=== PATIENT | female | born 2000 | race American Indian/Alaskan Native ===

== ENCOUNTER 2022-03-23 09:46 | Inpatient (IN) | payer MEDICAID ==
[2022-03-23] MEDS ORDERED: LACTATED RINGERS 1,000 ML IV SCH (11:30)
--- NOTE | 2022-03-23 11:36 | History and Physical Report ---
History of Present Illness Date of examination: 03/23/22 Chief complaint: my water broke History of present illness: Pt is a 21 year old female JUAN 04/07[birth year] at 37w6d who presents with co mplaint of rupture of membranes with a positive ROM plus test in triage. She denies regular contractions or vaginal bleeding. She has had limited care at [facility] since 17 wks complicated by late entry to care at 17 wks, morbid obesity, lapse in care between 20 and 31 wks, prior section, and GBS positive status. Pt reports needing a blood transfusion after her first delivery. Past History Past Medical History: other (Obesity) Past Surgical History: section Family/Genetic History: none Social history: no significant social history - Obstetrical History Expected Date of Delivery: 04/07/22 Actual Gestation: 37 Week(s) 6 Day(s) : 2 Para: 1 Hx # Term Pregnancies: 1 Number of Pregnancies: 0 Spontaneous Abortions: 0 Induced : 0 Number of Living Children: 1 Medications and Allergies Allergies Allergy/AdvReac Type Severity Reaction Status Date / Time No Known Allergies Allergy Unverified 09/11/15 08:56 Home Medications Medication Instructions Recorded Confirmed Last Taken Type Loratadine (Nf) [Claritin] 10 mg PO DAILY #30 tablet 09/11/15 Unknown Rx Prednisone [predniSONE 5 mg (6-Day 5 mg PO .TAPER #1 tab.ds.pk 09/11/15 Unknown Rx Pack, 21 Tabs)] RX: Amoxicillin [Trimox CAP] 500 mg PO Q8H #30 capsule 09/11/15 Unknown Rx Active Meds: Active Medications Citric Acid/Sodium Citrate (Bicitra Oral Liqd 30ml) 30 ml PO ONCE ONE Stop: 03/23/22 11:29 Famotidine (Famotidine 20 Mg/2 Ml Inj) 20 mg IV ONCE ONE Stop: 03/23/22 11:29 Metoclopramide HCl (Metoclopramide 10 Mg/2 Ml Inj) 10 mg IV ONCE ONE Stop: 03/23/22 11:29 Review of Systems All systems: negative - Vital Signs Vital signs: Vital Signs Pulse Pulse Ox 89 98 03/23/22 10:14 03/23/22 10:14 Temp Pulse Resp BP Pulse Ox 99.0 F 91 H 18 125/71 100 03/23/22 10:15 03/23/22 11:27 03/23/22 10:15 03/23/22 10:16 03/23/22 11:27 - Physical Exam Breasts: Positive: deferred Abdomen: Positive: soft (gravid, obese ) Uterus: Positive: enlarged (gravid) Extremities: Positive: edema (trace) - Obstetrical FHR: auscultation normal Uterine Contraction Monitor Mode: External Uterine Contraction Pattern: Irregular Uterine Tone Measurement Phase: Resting Results Result Diagrams: 03/23/22 11:28 Abnormal lab results 03/23/22 Range/Units Unknown Membranes Rupture Positive A (Negative) All other labs normal. Assessment and Plan A: IUP at 37w6d SROM Previous x 1 Morbid Obesity Insufficient Care Personal history of hemorrhage GBS Positive P: Proceed with repeat section and other indicated procedures
[2022-03-23] MEDS ORDERED: OXYTOCIN DRIP 30 UNITS/500 ML BAG IV SCH ×2 (12:00→17:00)
[2022-03-23] MEDS ORDERED: ceFAZolin/Water 2 GM/20 ML 2 GM/20 ML SYRINGE IV NR (12:00)
[2022-03-23] MEDS ORDERED: METOCLOPRAMIDE 10 MG/2 ML INJ IV ONE (12:30)
[2022-03-23] MEDS ORDERED: FAMOTIDINE 20 MG/2 ML INJ IV ONE (12:30)
[2022-03-23] MEDS ORDERED: BICITRA ORAL LIQD 30ML PO ONE (12:30)
--- NOTE | 2022-03-23 12:38 | Anesthesia Day of Surgery ---
Anesthesia Day of Surgery - Day of Surgery Patient Examined: Yes Patient H&P Reviewed: Yes Patient is NPO: Yes
--- NOTE | 2022-03-23 12:40 | Anesthesia Consultation ---
Anesthesia Consult and Med Hx Date of service: 03/23/22 - Airway Anesthetic Teeth Evaluation: Good ROM Head & Neck: Adequate Mental/Hyoid Distance: Adequate Mallampati Class: Class III Intubation Access Assessment: Probably Good - Pulmonary Exam CTA: Yes - Cardiac Exam Cardiac Exam: RRR - Pre-Operative Health Status ASA Pre-Surgery Classification: ASA3 Proposed Anesthetic Plan: Spinal - Pulmonary Hx Smoking: No Hx Asthma: No Hx Respiratory Symptoms: No - Cardiovascular System Hx Hypertension: No - Central Nervous System Hx Neuromuscular Disorder: No Hx Seizures: No Hx Psychiatric Problems: No - Endocrine Hx Renal Disease: No Hx Insulin Dependent Diabetes: No Hx Non-Insulin Dependent Diabetes: No Hx Hypothyroidism: No Hx Hyperthyroidism: No - Hematic Hx Anemia: No Hx Sickle Cell Disease: No - Other Systems Hx Alcohol Use: No Hx Substance Use: No Hx Obesity: Yes
[2022-03-23] MEDS ORDERED: ONDANSETRON 4 MG/2 ML INJ ONE (12:51)
[2022-03-23] MEDS ORDERED: TRANEXAMIC ACID 1,000 MG/10 ML ONE (12:51)
[2022-03-23] MEDS ORDERED: SODIUM CHLORIDE 0.9% 100 ML ONE (12:52)
[2022-03-23 13:14] LABS: Hematocrit 34.8 % (30.3-42.9); Hemoglobin 10.8 gm/dl (10.1-14.3); Mean Corpuscular HGB Conc 31 % (30-34); Mean Corpuscular Volume 75 fl (79-97); Platelet Count 242 K/mm3 (140-440); Red Blood Count 4.67 M/mm3 (3.65-5.03); Red Cell Distribution Width 16.7 % (13.2-15.2)
[2022-03-23] MEDS ORDERED: LACTATED RINGERS 1,000 ML ONE (14:03)
[2022-03-23] MEDS ORDERED: ceFAZolin/STERILE WATER 2 GM/20 ML SYRINGE IV ONE (14:06)
[2022-03-23] MEDS ORDERED: WATER FOR IRRIG STERILE 1,500 ML BOTTLE IR ONE (14:35)
[2022-03-23] MEDS ORDERED: SODIUM CHLORIDE 0.9% IRR 1,500 ML BOTTLE IR ONE (14:35)
[2022-03-23] MEDS ORDERED: METHYLERGONOVINE MALEATE 0.2 MG/ML VIAL IM ONE (14:56)
[2022-03-23] MEDS ORDERED: miSOPROStol 200 MCG TAB ONE (14:56)
[2022-03-23 15:18] LABS: Anisocytosis Few; Hypochromasia Few; Platelet Estimate Consistent w Auto; Total Cells Counted 100
--- NOTE | 2022-03-23 16:00 | Procedure Note ---
OB Delivery Note - Delivery Date of Delivery: 03/23/22 Surgeon: KIRA SEN Estimated blood loss: other (930 mL) - Section Preop diagnosis: repeat , other ([id number]) section procedure: section, repeat low transverse Disposition: PACU Narrative: Please see operative report - Infant A at 1 minute: 8 at 5 minutes: 9 Infant Gender: Female (2950g (6lb 8oz) @ 1503 pm)
[2022-03-23] MEDS ORDERED: KETOROLAC 30 MG/1 ML INJ ONE (16:02)
[2022-03-23] MEDS ORDERED: dexAMETHasone 20 MG/5 ML VIAL ONE (16:02)
[2022-03-23] MEDS ORDERED: BUPIVACAINE/PF (0.25%) 2.5 MG/ML 30 ML VIAL INFILTRATI ONE (16:02)
--- NOTE | 2022-03-23 16:09 | Operative Report ---
Operative Report Operative Report: Date of procedure: March 23, 2022 Preoperative diagnosis: 1) IUP at 37w6d 2) SROM 3) Previous x 1 4) Mo rbid Obesity Postoperative diagnosis: Same Procedure: Repeat low transverse section, lysis of adhesions Surgeon: Loren Gardner M.D. Anesthesia: Regional Findings: 1) Viable female , Apgars 8 and 9, weight 2950g, (6 lb 8 oz) in cephalic presentation. True knot in cord 2) Normal-appearing uterus ovaries and left fallopian tube. Right fallopian tube noted to adherent to uterus 3) Large adhesion on the anterior surface of the uterus Estimated blood loss: 930 mL IV fluids:2500 mL Urine output: 300 mL, clear at the end of the procedure Drains: Verma to gravity Specimens: None Medications: Misoprostol 400 mcg sublingual, Transexamic acid 1g IV Complications:None. Counts correct x 3 Disposition: Stable to PACU Indication for procedure: Pt is a 21 year old at 37w6d with a h/o one prior section presents with rupture of membranes. The decision was made to proceed with section. Operation in detail: After the risks, benefits, alternatives and complications were explained to the patient she gave informed consent for the procedure. She was subsequently taken to the operating room where regional anesthesia was noted to be adequate. She was placed in the dorsal supine position with leftward tilt and prepped and draped in a normal sterile fashion. heart tones were noted prior to incision. A timeout was performed. A Pfannenstiel skin incision was made with the knife and carried down to the layer of the fascia with the Bovie. The fascia was incised in the midline and the fascial incision was extended bilaterally with the Bovie. The fascial incision was then stretched. The rectus muscles were then in the midline for adequate visualization. The peritoneum was then entered sharply. The peritoneal incision was extended with good visualization of the bladder. A large adhesion was noted at the anterior surface of the uterus, and was lysed with the Bovie. The peritoneal incision was then stretched. An Chilo retractor was placed. The bladder blade was then placed. The vesicouterine peritoneum was grasped with smooth pick ups and incised with Metzenbaum scissors. A bladder flap was then created digitally and the bladder blade was replaced. A transverse incision was made in the lower uterine segment with a knife and extended bilaterally with the bandage scissors. Amniotomy was performed with egress of clear fluid. head delivered with ease, followed by shoulders and body. bulb suctioned at delivery. Cord clamped and cut. handed to NICU staff in attendance. Cord blood was collected. The placenta was then delivered manually. The uterus was then exteriorized and cleared of all clots and debris. The hysterotomy was then reapproximated with 0 Monocryl in a running locked fashion. A second layer of the same suture was used in imbricating fashion. The hysterotomy was inspected and hemostasis was noted. The gutters were irrigated and cleared of all clots and debris. The uterus was placed back into the peritoneal cavity. The hysterotomy was again inspected and noted to be hemostatic. Surgicel was placed over the hysterotomy. The Chilo retractor was removed. The peritoneum was reapproximated with 0 Monocryl in a running fashion incorporating the rectus muscles. Surgicel was placed over the rectus muscles. The fascia was reapproximated with 0 Vicryl in a running fashion. The subcutaneous tissue was reapproximated with 3-0 Vicryl in a running fashion. The skin was reapproximated with 3-0 Monocryl in a subcuticular fashion. The incision was then covered with steri strips and a pressure dressing. The procedure was then ended. The patient tolerated the procedure well and was taken to the PACU in stable condition. All instrument, lap, and needle counts were correct 3.
[2022-03-23] MEDS ORDERED: ONDANSETRON 4 MG/2 ML INJ IV PRN (16:10)
[2022-03-23] MEDS ORDERED: LANOLIN/ZINC/DIMETHICONE (LANSINOH) 7 GM TP PRN (16:10)
[2022-03-23] MEDS ORDERED: HYDROmorphone 0.5 MG/0.5 ML INJ IV PRN ×2 (16:10)
[2022-03-23] MEDS ORDERED: SIMETHICONE 80 MG CHEW TAB PO PRN (16:10)
[2022-03-23] MEDS ORDERED: NALOXONE 0.4 MG/1 ML INJ IV PRN (16:10)
[2022-03-23] MEDS ORDERED: WITCH HAZEL/ GLYCERIN PAD TP PRN (16:10)
--- NOTE | 2022-03-23 16:13 | Progress Note ---
Spinal Anesthesia Block - Spinal Anesthesia Block Start Time: 14:08 Stop Time: 14:17 Performed by:: NAHOMI CONTRERAS Procedure: Patient IDed, H&P reviewed, all questions and concerns were answered, and consent was signed. Timeout was performed at bedside. Patient in sitting position. Sterile prep and drape was performed. [3] ml of 1% lidocaine skin wheal at L[3]- L [4]. Needle introducer advanced. 25 gauge spinal needle advanced. Clear, free flowing CSF. negative blood, negative paresthesia. Spinal dose given. All needles removed. Patient tolerated procedure.
[2022-03-23] MEDS ORDERED: D5W/LACTATED RINGERS 1,000 ML IV SCH (17:00)
[2022-03-23] MEDS: IBUPROFEN 800 MG TAB PO SCH (18:49)
[2022-03-23] MEDS: KETOROLAC 30 MG/1 ML INJ IV SCH (18:59)
[2022-03-23] MEDS: ceFAZolin/NS 1 GM/50 ML 1 GM/50 ML BAG IV SCH (18:59)
[2022-03-24] MEDS: IBUPROFEN 800 MG TAB PO SCH ×3 (00:49→15:48)
[2022-03-24] MEDS: KETOROLAC 30 MG/1 ML INJ IV SCH ×2 (01:06→06:59)
[2022-03-24] MEDS: ceFAZolin/NS 1 GM/50 ML 1 GM/50 ML BAG IV SCH (03:37)
[2022-03-24 08:15] LABS: Hematocrit 32.5 % (30.3-42.9); Hemoglobin 10.3 gm/dl (10.1-14.3)
[2022-03-24] MEDS: oxyCODONE /ACETAMINOPHEN 5-325MG TAB PO PRN ×2 (08:51→22:31)
--- NOTE | 2022-03-24 12:52 | Progress Note ---
Assessment and Plan - Patient Problems (1) Status post repeat low transverse section Current Visit: Yes Status: Acute Plan to address problem: Continue routine PP orders Keep dressing clean and dry, remove on POD#2 Anticipate d/c home in 24-48hr if stable (2) Anemia Current Visit: Yes Status: Acute Qualifiers: Anemia type: iron deficiency Plan to address problem: Asymptomatic Increase iron rich foods into diet (3) Morbid obesity with BMI of 40.0-44.9, adult Current Visit: Yes Status: Acute Subjective - Subjective Date of service: 03/24/22 Principal diagnosis: S/P repeat C/S; POD#1 Interval history: Pt is a 21 year old female JUAN 04[birth year] at 37w6d who presents with complaint of rupture of membranes with a positive ROM plus test in triage. She denies regular contractions or vaginal bleeding. She has had limited care at [facility] since 17 wks complicated by late entry to care at 17 wks, morbid obesity, lapse in care between 20 and 31 wks, prior section, and GBS positive status. Pt reports needing a blood transfusion after her first delivery. Delivered viable female infant via C/S. Patient reports: appetite normal, voiding normally, pain well controlled (with medications), flatus, ambulating normally, no bowel movement : doing well, bottle feeding (and ) Objective - Vital Signs Latest vital signs: Vital Signs Temp Pulse Resp BP BP Pulse Ox Pulse Ox 03/24/22 08:20 98 F 86 18 110/62 100 03/24/22 08:05 98 03/24/22 04:40 98.0 F 66 18 117/56 97 03/24/22 00:08 98.2 F 90 18 113/67 100 03/23/22 20:33 98.0 F 91 H 18 115/57 100 03/23/22 20:30 100 03/23/22 18:15 99.2 F 92 H 16 104/47 100 100 03/23/22 17:52 87 16 102/49 100 03/23/22 17:45 88 20 111/55 98 03/23/22 17:38 91 H 22 95/50 98 03/23/22 17:25 98.9 F 87 22 101/74 98 03/23/22 17:11 87 24 98/87 100 03/23/22 16:56 95 H 19 117/77 100 03/23/22 16:51 94 H 18 106/55 100 03/23/22 16:46 90 19 115/43 100 03/23/22 16:43 102 H 25 H 116/40 100 03/23/22 13:34 120 H 99 03/23/22 13:29 116 H 100 03/23/22 13:24 104 H 100 03/23/22 13:19 95 H 100 03/23/22 13:14 110 H 100 03/23/22 13:09 101 H 99 03/23/22 13:04 87 100 03/23/22 12:59 99 H 99 03/23/22 12:54 100 H 100 Intake and Output 03/23/22 03/24/22 03/24/22 23:59 07:59 15:59 Intake Total 550 200 Output Total 400 1700 Balance 150 -1500 Intake: IV 250 ANCEF/NS 1 GM/50 ML 1 gm 50 In 50 ml @ 100 mls/hr IV Q8H [facility] Rx#:[id number] Oral 200 Intake, Free Water 300 Output: Urine 400 1700 Indwelling Catheter 750 Uretheral (Verma) 750 Void 200 Other: Total, Intake Amount 200 Total, Output Amount 200 # Voids Void 2 # Bowel Movements 1 - Exam Breasts: Present: normal Cardiovascular: Present: Regular rate Lungs: Present: Normal air movement Abdomen: Present: soft, tenderness Uterus: Present: firm, fundal height below umbilicus (U-2) Extremities: Present: edema (BLE) Deep Tendon Reflex Grade: Normal +2 Incision: Present: dressed (no shadow drainage or bleeding noted) - Labs Labs: Abnormal lab results 03/23/22 Range/Units 11:28 WBC 16.6 H (4.5-11.0) K/mm3 MCV 75 L (79-97) fl MCH 23 L (28-32) pg RDW 16.7 H (13.2-15.2) % Seg Neuts % (Manual) 85.0 H (40.0-70.0) % Lymphocytes % (Manual) 9.0 L (13.4-35.0) % Basophils % (Manual) 2.0 H (0.0-1.8) % Seg Neutrophils # Man 14.1 H (1.8-7.7) K/mm3 Basophils # (Manual) 0.3 H (0.0-0.1) K/mm3
--- NOTE | 2022-03-24 15:18 | Post Anesthesia Evaluation ---
- Post Anesthesia Evaluation Patient Participated: Yes Airway Patent: Yes Stable Respiratory Function: Yes Nausea/Vomiting: No Temp > 96.8F: Yes Pain Manageable: Yes Adequeate Hydration: Yes Anesthesia Complications: No Block Receding Appropriately: Yes Patient on Ventilator: No
[2022-03-24] MEDS: FERROUS SULFATE 325 MG TAB PO SCH (15:54)
[2022-03-24] MEDS ORDERED: TETANUS,DIPH,PERTUSS(ACELL) VACCINE 0.5 ML SYRINGE IM ONE (17:20)
[2022-03-24] MEDS ORDERED: MEASLES, MUMPS & RUBELLA 12,500 UNIT/0.5 ML VACCINE SUB-Q ONE (17:30)
[2022-03-25] MEDS: IBUPROFEN 800 MG TAB PO SCH ×3 (00:02→10:02)
--- NOTE | 2022-03-25 07:45 | Progress Note ---
Assessment and Plan - Patient Problems (1) Status post repeat low transverse section Current Visit: Yes Status: Acute Plan to address problem: patient doing well discharge home Subjective - Subjective Date of service: 03/25/22 Principal diagnosis: S/P repeat C/S; POD#2 Interval history: Patient without complaints. Pain well controlled Patient reports: appetite normal, voiding normally, pain well controlled [place]: doing well Objective - Vital Signs Latest vital signs: Vital Signs Temp Pulse Resp BP BP Pulse Ox Pulse Ox 03/25/22 05:05 98 03/25/22 03:45 98 03/25/22 00:33 97.8 F 86 20 112/66 96 03/25/22 00:02 98 03/24/22 22:30 98 03/24/22 19:55 98 03/24/22 18:17 97.7 F 83 18 120/66 97 03/24/22 12:49 97.6 F 78 18 119/79 98 03/24/22 08:20 98 F 86 18 110/62 100 03/24/22 08:05 98 Intake and Output 03/24/22 03/25/22 03/25/22 22:59 06:59 14:59 Intake Total 240 600 Balance 240 600 Intake: Oral 240 600 Other: Total, Intake Amount 120 120 # Voids Void 1 1
--- NOTE | 2022-03-25 07:55 | Discharge Summary ---
Providers - Providers Date of Admission: 03/23/22 13:41 Date of discharge: 03/25/22 Attending physician: KIRA SEN 03/23/22 16:10 Consult to Manufacturing Recruiter [CONS] Routine Reason For Exam: Primary care physician: KIRA SEN Hospitalization Reason for admission: section Delivery: Procedure: section, repeat low transverse Discharge diagnosis: IUP at term delivered Hospital course: Patient admitted and underwent a repeat . See op note. Postop uncomplicated Condition at discharge: Good Disposition: 01 HOME / SELF CARE / HOMELESS - Discharge Diagnoses (1) Status post repeat low transverse section Status: Acute Plan - Discharge Medications Prescriptions: Ibuprofen [Motrin] 800 mg PO Q8HR PRN #60 tablet PRN Reason: Pain , Severe (7-10) oxyCODONE /ACETAMINOPHEN [Percocet 5/325] 1 tab PO Q6HR PRN #30 tablet PRN Reason: Pain - Provider Discharge Summary Activity: no sex for 6 weeks, no heavy lifting 4 weeks, no strenuous exercise Diet: routine Instructions: routine Additional instructions: [] Smoking cessation referral if applicable(refer to patient education folder for contact #) [] Refer to [facility] Booklet Call your doctor immediately for: * Fever > 100.5 * Heavy vaginal bleeding ( >1 pad per hour) * Severe persistent headache * Shortness of breath * Reddened, hot, painful area to leg or breast * Drainage or odor from incision. * Keep incision clean and dry at all times and follow doctor's instructions regarding bathing/showering schedule followup in 2 weeks - Follow up plan
[2022-03-25] MEDS: FERROUS SULFATE 325 MG TAB PO SCH (10:02)
[2022-03-25 13:56] VITALS: BP 112/60
== END 2022-03-25 16:04 | disposition home or self-care (01) | DRG 766 ==
LOC: APU 09:46 → TRG 09:46 → APU 13:41 → OB 18:44
PROVIDERS: ADMIT Obstetrics & Gynecology; ATTEND Obstetrics & Gynecology
PROC: 10D00Z1 Extraction of Products of Conception, Low, Open Approach (ICD-10-PCS; principal; 2022-03-23)
PROC: 3E0234Z Introduction of Serum, Toxoid and Vaccine into Muscle, Percutaneous Approach (ICD-10-PCS; 2022-03-24)
PROC: 3E0134Z Introduction of Serum, Toxoid and Vaccine into Subcutaneous Tissue, Percutaneous Approach (ICD-10-PCS; 2022-03-24)
DX: O34.211 Maternal care for low transverse scar from previous cesarean delivery (principal); O99.824 Streptococcus B carrier state complicating childbirth; O99.214 Obesity complicating childbirth; E66.01 Morbid (severe) obesity due to excess calories; Z3A.37 37 weeks gestation of pregnancy; Z37.0 Single live birth; O90.81 Anemia of the puerperium; D50.9 Iron deficiency anemia, unspecified; Z23 Encounter for immunization
CPT/HCPCS: 36415; 84112; 85007; 85014; 85018; 85025; 86850; 86900; 86901; 99211; G0378; J3490; J7121; C1765; G0463; J0690; J1100; J1885; J2405; J2765; J7120